=== PATIENT | female | born 1990 | race Asian ===

== ENCOUNTER 2021-12-22 01:13 | Emergency (ER) | payer OTHER ==
[~2021-12-22] VITALS: Ht 165.1 cm; Wt 80.7 kg
[2021-12-22 01:50] LABS: MEAN CORPUSCULAR HEMOGLOBIN 27.5 uug (24.7-32.8); MEAN CORPUSCULAR VOLUME 81.3 fL (75.5-95.3); PLATELET COUNT (AUTO) 422 K/uL (179-408)
[2021-12-22 02:05] LABS: ALANINE AMINOTRANSFERASE 22 U/L (14-59); ALKALINE PHOSPHATASE 70 U/L (50-136); ASPARTATE AMINOTRANSFERASE 16 U/L (15-37); BILIRUBIN,DIRECT < 0.1 mg/dL (0.0-0.2); BILIRUBIN,TOTAL 0.4 mg/dL (0.2-1.0); CARBON DIOXIDE 27 mmol/L (21-32); CHLORIDE 102 mmol/L (98-107); CREATININE 0.8 mg/dL (0.6-1.3); GLUCOSE 128 mg/dL (74-106); POTASSIUM 3.9 mmol/L (3.5-5.1); TOTAL PROTEIN, SERUM 7.6 g/dL (6.4-8.2); UREA NITROGEN, BLOOD 12 mg/dL (7-18)
[2021-12-22 03:56] LABS: *BILIRUBIN,URIN NEGATIVE (NEGATIVE); *CLARITY,URINE CLEAR (CLEAR); *COLOR,URINE YELLOW (YELLOW); *KETONES,URINE NEGATIVE (NEGATIVE); *URINE HCG, QUAL NEGATIVE (NEGATIVE); *UROBILINOGEN,URINE 0.2 E.U./dl (NORMAL); LEUKOCYTE ESTERASE ,URINE 1+ (NEGATIVE); NITRITE, URINE NEGATIVE (NEGATIVE); UGLUCOSE NEGATIVE (NEGATIVE)
[2021-12-22 03:57] LABS: *BLOOD, URINE TRACE (NEGATIVE)
[2021-12-22 04:06] LABS: BACTERIA,URINE FEW /HPF (NONE SEEN); SQUAMOUS EPITHELIAL CELL,UR MODERATE /HPF (NONE SEEN)
[2021-12-22 04:23] VITALS: BP 138/74
--- NOTE | 2021-12-22 04:23 | NUR ---
Patient discharged to home in stable condition. Written and verbal after care instructions given. Patient verbalizes understanding of instructions. Stressed follow up or return to ER for worsening s/s.
== END 2021-12-22 04:24 | disposition home or self-care (01) ==
LOC: ER 01:25
DX: E72.20 Disorder of urea cycle metabolism, unspecified (principal); E72.4 Disorders of ornithine metabolism; R03.0 Elevated blood-pressure reading, without diagnosis of hypertension
CPT/HCPCS: 36415; 76856; 84703; 85025; 87077; 87086; A4663

== ENCOUNTER 2023-06-11 00:46 | Emergency (ER) | payer OTHER ==
[~2023-06-11] VITALS: Ht 162.6 cm; Wt 79.4 kg
[2023-06-11] MEDS: ONDANSETRON ODT 4 MG TAB.RAPDIS SL ONE (01:00)
[2023-06-11] MEDS ORDERED: KETOROLAC TROMETHAMINE 30 MG INJ ONE ×2 (01:30→05:58)
[2023-06-11] MEDS ORDERED: ONDANSETRON HCL 4 MG TABLET ONE (01:30)
[2023-06-11 01:37] LABS: BASOPHILS # (AUTO) 0.1 K/UL (0.0-0.2); BASOPHILS % (AUTO) 0.8 % (0.0-2.0); EOSINOPHILS % (AUTO) 0.3 % (0.0-7.0); HEMATOCRIT 35.8 % (31.2-41.9); HEMOGLOBIN 11.8 g/dL (10.9-14.3); MEAN CORPUSCULAR HEMOGLOBIN 25.2 uug (24.7-32.8); MEAN CORPUSCULAR HGB CONC 33 g/dL (32.3-35.6); MEAN CORPUSCULAR VOLUME 76.5 fL (75.5-95.3); MONOCYTES # (AUTO) 0.6 K/uL (0.1-1.30); MONOCYTES % (AUTO) 5.4 % (0.0-11.0); NEUTROPHILS # (AUTO) 7.8 K/uL (1.8-8.9); NEUTROPHILS % (AUTO) 74.5 % (38.5-71.5); PLATELET COUNT (AUTO) 457 K/uL (179-408); RED BLOOD CELL COUNT(AUTO) 4.68 MIL/uL (3.63-4.92); RED CELL DISTRIBUTION WIDTH 15.8 % (12.3-17.7); WHITE BLOOD COUNT (AUTO) 10.5 K/uL (3.8-11.8)
[2023-06-11 01:45] LABS: DIFFERENTIAL COMMENT 1
[2023-06-11 01:48] LABS: CALCIUM 9.2 mg/dL (8.5-10.1); CREATININE 0.8 mg/dL (0.6-1.3); POTASSIUM 4.5 mmol/L (3.5-5.1)
[2023-06-11 01:54] LABS: ALBUMIN 3.7 g/dL (3.4-5.0); BILIRUBIN,TOTAL 0.3 mg/dL (0.2-1.0); TOTAL PROTEIN, SERUM 8.1 g/dL (6.4-8.2)
[2023-06-11] MEDS: KETOROLAC TROMETHAMINE 30 MG INJ IM ONE (02:30)
[2023-06-11 02:51] LABS: LACTIC ACID 2.4 mmol/L (0.4-2.0)
[2023-06-11 03:40] LABS: *BILIRUBIN,URIN NEGATIVE (NEGATIVE); *BLOOD, URINE 3+ (NEGATIVE); *COLOR,URINE YELLOW (YELLOW); *KETONES,URINE NEGATIVE (NEGATIVE); *PROTEIN,URINE NEGATIVE (NEGATIVE); *UROBILINOGEN,URINE 0.2 E.U./dl (NORMAL); LEUKOCYTE ESTERASE ,URINE NEGATIVE (NEGATIVE); NITRITE, URINE NEGATIVE (NEGATIVE); UGLUCOSE NEGATIVE (NEGATIVE)
[2023-06-11 03:59] LABS: *CLARITY,URINE HAZY (CLEAR)
[2023-06-11 04:00] LABS: BACTERIA,URINE FEW /HPF (NONE SEEN); RBC,URINE 20-50 /HPF (0-3); SQUAMOUS EPITHELIAL CELL,UR FEW /HPF (NONE SEEN); WBC,URINE 0-3 /HPF (0-3)
[2023-06-11 04:01] LABS: *URINE HCG, QUAL NEGATIVE (NEGATIVE)
[2023-06-11] MEDS: IV NS 1000 ML 1,000 ML IV ONE ×2 (04:08→05:56)
[2023-06-11] MEDS: KETOROLAC TROMETHAMINE 30 MG INJ IVP ONE (05:56)
[2023-06-11] MEDS ORDERED: IBUP-1955 PO (07:04)
[2023-06-11 07:25] VITALS: BP 132/66; TEMP 98.2; O2SAT 99
== END 2023-06-11 07:57 | disposition home or self-care (01) ==
LOC: ER 00:54
DX: R51.9 Headache, unspecified (principal); R10.2 Pelvic and perineal pain; Z20.822 Contact with and (suspected) exposure to COVID-19
CPT/HCPCS: 99285; 96374; 70450; 96361; 87426; 80053; 81001; 82248; 84703; 85025; 87040; 36415; 83605 ×3; J1885; J7040; A4606; A4663; Q0162

== ENCOUNTER 2025-03-13 06:18 | Emergency (ER) | payer OTHER ==
[~2025-03-13] VITALS: Ht 162.6 cm; Wt 81.6 kg
[~2025-03-13 06:18] MED LIST: IBUP-1955 PO
[2025-03-13 07:05] VITALS: BP 138/99
[2025-03-13 07:18] LABS: *BILIRUBIN,URIN NEGATIVE (NEGATIVE); *BLOOD, URINE 2+ (NEGATIVE); *CLARITY,URINE CLEAR (CLEAR); *COLOR,URINE YELLOW (YELLOW); *KETONES,URINE NEGATIVE (NEGATIVE); *PROTEIN,URINE 1+ (NEGATIVE); *UROBILINOGEN,URINE 0.2 E.U./dl (NORMAL); LEUKOCYTE ESTERASE ,URINE TRACE (NEGATIVE); NITRITE, URINE NEGATIVE (NEGATIVE); UGLUCOSE NEGATIVE (NEGATIVE)
[2025-03-13 07:19] LABS: *URINE HCG, QUAL NEGATIVE (NEGATIVE)
[2025-03-13 07:20] LABS: CREATININE 0.7 mg/dL (0.6-1.3); SODIUM SERUM 137.0 mmol/L (136-145); UREA NITROGEN, BLOOD 8.0 mg/dL (7-18)
[2025-03-13 07:22] LABS: PLATELET COUNT (AUTO) 585 K/uL (179-408); RED BLOOD CELL COUNT(AUTO) 3.68 MIL/uL (3.63-4.92); RED CELL DISTRIBUTION WIDTH 20.6 % (12.3-17.7); WHITE BLOOD COUNT (AUTO) 6.7 K/uL (3.8-11.8)
[2025-03-13 07:26] LABS: ASPARTATE AMINOTRANSFERASE 10.0 U/L (15-37); TOTAL PROTEIN, SERUM 7.7 g/dL (6.4-8.2)
[2025-03-13 07:29] LABS: SQUAMOUS EPITHELIAL CELL,UR MODERATE /HPF (NONE SEEN)
[2025-03-13] MEDS ORDERED: ACETAMINOPHEN 500 MG TABLET ONE (07:47)
[2025-03-13] MEDS ORDERED: IBUPROFEN 200 MG TABLET ONE (07:47)
[2025-03-13] MEDS ORDERED: CEFTRIAXONE /D5W 50ML IVPB **ER PYXIS IV ONE (07:47)
[2025-03-13] MEDS: ACETAMINOPHEN 500 MG TABLET PO ONE (07:53)
[2025-03-13] MEDS: IBUPROFEN 200 MG TABLET PO ONE (07:54)
[2025-03-13 08:07] LABS: IRON, SERUM 23 ug/dL (50-175)
[2025-03-13] MEDS: SOD FERRIC GLUC COMPLX/SUCROSE 125 MG in IV NORMAL SALINE 100 ML IV ONE (08:24)
[2025-03-13] MEDS ORDERED: SULF1TAB48 PO (08:38)
[2025-03-13 10:28] VITALS: BP 128/95; TEMP 98; O2SAT 98
== END 2025-03-13 10:30 | disposition home or self-care (01) ==
LOC: ER 06:22
DX: D50.9 Iron deficiency anemia, unspecified (principal); E88.810 Metabolic syndrome; N39.0 Urinary tract infection, site not specified; N91.2 Amenorrhea, unspecified; N92.0 Excessive and frequent menstruation with regular cycle; Z88.1 Allergy status to other antibiotic agents; Z88.7 Allergy status to serum and vaccine
CPT/HCPCS: 99285; 96365; 76856; 96367; 80053; 81001; 82140; 82728; 84703; 83550; 85025; 87086; 36415; J0696; J2916; A4606; A4663; A9150